=== PATIENT | female | born 1995 | race Caucasian/White ===

== ENCOUNTER → 2017-02-04 | Outpatient (CLI) | payer SELFPAY | LOC: MW.CHOBGYN 07:45 | PROVIDERS: ATTEND Nurse Practitioner Women's Health | DX: N92.6 Irregular menstruation, unspecified (principal); N64.89 Other specified disorders of breast | CPT/HCPCS: 36415; 81025; 84443 ==

== ENCOUNTER → 2017-02-22 | Outpatient (CLI) | payer SELFPAY ==
--- NOTE | 2017-02-23 09:29 | US ---
EXAMINATION: Left soft tissue neck ultrasound HISTORY: Localized swelling COMPARISON: None TECHNIQUE: Grayscale and color Doppler images were obtained within the region of concern. FINDINGS/IMPRESSION: Within the area of the palpable abnormality there is an immediately subcutaneou s oval 8 x 3 mm and an adjacent 9 x 3 mm hypoechoic masses. These do not demonstrate internal color Doppler flow and appear to have mild posterior acoustic enhancement. These may represent tiny subcut aneous cysts versus small lymph nodes.
== END ==
LOC: MW.US 12:46
PROVIDERS: ATTEND Physician Assistant
DX: R22.1 Localized swelling, mass and lump, neck (principal)
CPT/HCPCS: 76536-LT

== ENCOUNTER 2017-06-11 09:24 | Emergency (ER) | payer SELFPAY ==
[2017-06-11] MEDS ORDERED: Ketorolac 60 MG/2 ML SDV IM ONE (10:32)
--- NOTE | 2017-06-11 11:00 | EDM.PDOC ---
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 Over the last 24 hours the pain has increased considerably and she said that she sat on the toilet this morning and palpated the area and there was a hard tender painful mass. She states she just got over her menses 2 days ago. She has been using the Depo- Provera Provera for control as she is sexually active but has not had an injection for 4 months. She is otherwise healthy without chronic medical problems. She denies fever, back pain, urinary urgency frequency or burning except the local pain. No difficulty with urination. Vaginal Pain Score (Numeric/FACES): 4 - Related Data Allergies Allergy/AdvReac Type Severity Reaction Status Date / Time No Known Allergies Allergy Verified 06/11/17 09:54 Home Meds: Home Meds . [No Known Home Meds] 06/11/17 [History] Past Medical History - Past Health History Medical/Surgical History: Denies Medical/Surgical History Social & Family History - Family History Family Medical History: Noncontributory - Tobacco Use Smoking Status *Q: Never Smoker - Caffeine Use Caffeine Use: Reports: None ED ROS GENERAL - Review of Systems Review Of Systems: ROS reveals no pertinent complaints other than HPI. ED EXAM, RENAL/ - Physical Exam Exam: See Below Exam Limited By: No Limitations General Appearance: Alert, No Apparent Distress Ears: Normal External Exam Nose: Normal Inspection Throat/Mouth: Normal Inspection Head: Atraumatic, Normocephalic Neck: Normal Inspection Respiratory/Chest: No Respiratory Distress Cardiovascular: Normal Peripheral Pulses GI/Abdominal: Soft (Female) Exam: Other ([place]eflin size tender, firm almost translucent mass about the urethral meatus. No erythema or drainage.) Extremities: Normal Inspection Neurological: Alert, Oriented Psychiatric: Normal Affect, Anxious Skin Exam: Warm, Dry, Intact, Normal Color, No Rash Lymphatic: No Adenopathy Course - Vital Signs Last Recorded V/S: Last Vital Signs Temp 36.6 C 06/11/17 09:55 Pulse 114 H 06/11/17 09:55 Resp 16 06/11/17 09:55 BP 109/63 06/11/17 09:55 Pulse Ox 99 06/11/17 09:55 - Orders/Labs/Meds Orders: Active Orders 24 hr Category Date Time Status HCG QUALITATIVE,URINE [URCHEM] Stat Lab 06/11/17 09:53 Uncollected UA W/MICROSCOPIC [URIN] Stat Lab 06/11/17 09:53 Uncollected Meds: Medications Discontinued Medications Generic Name Dose Route Start Last Admin Trade Name Lisa PRN Reason Stop Dose Admin Ketorolac Tromethamine 60 mg 06/11/17 10:32 06/11/17 10:46 Toradol IM 06/11/17 10:33 Not Given ONETIME ONE - Re-Assessments/Exams Free Text/Narrative Re-Assessment/Exam: 06/11/17 11:01 Refused Toradol injection. The patient states she will not take the antibiotics if there is no signs of infection. 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 Warm moist packs to the cyst every 2-4 hours for 20 minutes. 2. Aleve 2 tabs in the morning and 2 tabs at night or ibuprofen 600 mg (3, 200mg tabs) three times a day 3. Hendricks every 6 hours as needed for pain--no driving or operating machinery 4. Follow-up with Tatiana Shaffer or one of her colleagues Dr. Tracey or Manasa North CNM on Tuesday. A referral has been sent. Call for an appointment early Tuesday am. 5. Return promptly for fevers, inability to urinate, purulent discharge.
[2017-06-11 11:49] VITALS: BP 113/75
== END 2017-06-11 11:47 | disposition home or self-care (01) ==
LOC: MW.ED 09:24
DX: N36.8 Other specified disorders of urethra (principal)
CPT/HCPCS: 81001; 81025; 99283